=== PATIENT | male | born 1950 | race Caucasian/White ===

== ENCOUNTER 2018-08-24 20:45 | Inpatient (IN) | payer MEDICARE, MEDICAID ==
--- NOTE | 2018-08-24 21:00 | ED Physician Chart ---
ED Chief Complaint/HPI - Patient Information Date Seen:: 08/24/18 Time Seen:: 20:56 Chief Complaint:: agitation History of Present Illness:: sive disorder glaucoma cerebral palsy copd afib oa osteoporois here from [facility] for increased agitation Allergies:: Allergies Allergy/AdvReac Type Severity Reaction Status Date / Time Penicillins Allergy Verified 09/19/17 23:02 ED Review of Systems - Review of Systems General/Constitutional: No fever, No chills Head: No headache ENT: No earache Neck: No neck pain Cardio Vascular: No chest pain Pulmonary: No SOB GI: No nausea, No vomiting G/U: No dysuria Musculoskeletal: No bone or joint pain Family Medical History - Family Member Mother History Unknown: Yes ED Septic Shock - . Is Septic Shock (SBP<90, OR Lactate>4 mmol\L) present?: No ED Reassessment (Disposition) - Diagnosis Diagnosis:: pt here for geropsych clearance - Patient Disposition Discharge/Transfer:: Acute Care w/in this hosp Admitted to:: Med/Surg Condition at Disposition:: Stable
[2018-08-24 21:17] LABS: % BASOPHILS 0.8 % (0.0-2.0); % EOSINOPHILS 0.3 % (0.0-5.0); % MONOCYTES 11.3 % (2.0-10.0); % NEUTROPHILS 61.6 % (40.0-80.0); HEMATOCRIT 36.3 % (41.0-60); HEMOGLOBIN 11.9 gm/dL (12-16); MEAN CELL VOLUME 81.5 fl (80-99); MEAN CORPUSCULAR HEMOGLOBIN 26.8 pg (27.0-31.0); MEAN CORPUSCULAR HGB CONC 32.9 pg (28.0-36.0); MEAN PLATELET VOLUME 7.6 fl; MONOCYTE ABSOLUTE 0.5 Th/cmm (0.3-1.0); NEUTROPHILE ABSOLUTE 2.5 Th/cmm (1.8-8.0); PLATELET COUNT 304 Th/cmm (150-400); RED BLOOD COUNT 4.45 Mil/cmm (3.80-5.80); RED CELL DISTRIBUTION WIDTH 13.8 % (11.5-20.0)
[2018-08-24 21:29] LABS: ALB/GLOB RATIO 1.3 (1.0-1.8); ALKALINE PHOSPHATASE 78 U/L (34-104); ANION GAP 13.1 (7.0-16.0); BILIRUBIN,TOTAL 0.4 mg/dL (0.3-1.0); BUN - UREA NITROGEN 24 mg/dL (7-25); CALCIUM SERUM 9.2 mg/dL (8.6-10.3); CARBON DIOXIDE 23.9 mEq/L (21.0-31.0); CHLORIDE 107 mEq/L (98-107); CREATININE - SERUM 1.1 mg/dL (0.7-1.3); GFR AFRICAN-AMERICAN > 60.0 ml/min (>90); GFR NON AFRICAN-AMERICAN > 60.0 ml/min; GLUCOSE 152 mg/dL (70-105); SGOT 74 U/L (13-39); SGPT/ALT 68 U/L (7-52); SODIUM SERUM 140 mEq/L (136-145); TOTAL PROTEIN,SERUM 7.1 gm/dL (6.0-8.3)
[2018-08-24 23:10] VITALS: BP 142/65
[2018-08-24] MEDS ORDERED: Maalox 30 mL Cup PO PRN (23:18)
[2018-08-24] MEDS ORDERED: Magnesium Hydroxide (MOM) 30 mL UDC PO PRN ×2 (23:18→23:58)
[2018-08-25] MEDS ORDERED: DILTIAZEM HCL 60 MG PO SCH
[2018-08-25] MEDS: Pantoprazole 40 mg EC Tab PO SCH (08:32)
--- NOTE | 2018-08-25 08:38 | Diagnostic Imaging Report ---
CHEST X-RAY: AP view INDICATION: Fall COMPARISON: 09/19/2017 FINDINGS: No evidence of pneumothorax. Mild chronic lung changes are noted. No focal consolidation or effusions. Heart size is borderline prominent.. Osseous structures are intact. Degenerative changes of the spine are noted. IMPRESSION: No focal consolidation or evidence of pneumothorax. Mild chronic lung changes.
[2018-08-25] MEDS ORDERED: MULTIVITAMIN PO SCH (09:00)
[2018-08-25] MEDS ORDERED: HYPROMELLOSE EACH EYE SCH (09:00)
[2018-08-25] MEDS ORDERED: DABIGATRAN ETEXILATE MESYLATE 150 MG PO SCH (09:00)
[2018-08-25] MEDS ORDERED: DEXTRAN EACH EYE SCH (09:00)
[2018-08-25 09:01] LABS: CHOLESTEROL 158 mg/dL (<200); HDL -HIGH DENSITY LIPOPROTEIN 41 mg/dL (23-92); TRIGLYCERIDES 197 mg/dL (<150)
[2018-08-25] MEDS: AZELASTINE HCL HHN SCH ×2 (09:21→17:10)
[2018-08-25] MEDS: Fenofibrate, Micronized 134 mg Cap PO SCH (09:31)
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
[2018-08-25] MEDS: Peg-400/Propylene Ophth Soln 5 mL Bottle EACH EYE SCH ×2 (13:23→17:16)
[2018-08-25] MEDS: Diltiazem 30 mg Tab PO SCH (17:08)
[2018-08-25] MEDS: Polyvinyl Alcohol Ophth Soln 15 mL Bottle EACH EYE SCH (17:09)
[2018-08-25] MEDS: Lactulose 10 Gm/15 mL 30mL UDC PO SCH (21:03)
[2018-08-26] MEDS: Pantoprazole 40 mg EC Tab PO SCH (07:11)
[2018-08-26] MEDS: Fenofibrate, Micronized 134 mg Cap PO SCH (08:55)
[2018-08-26] MEDS: Multivitamin Tab PO SCH (08:56)
[2018-08-26] MEDS: Polyvinyl Alcohol Ophth Soln 15 mL Bottle EACH EYE SCH ×2 (09:03→16:42)
[2018-08-26] MEDS: Diltiazem 30 mg Tab PO SCH ×2 (09:03→16:20)
[2018-08-26] MEDS: Peg-400/Propylene Ophth Soln 5 mL Bottle EACH EYE SCH ×2 (09:03→16:42)
--- NOTE | 2018-08-26 16:15 | Psychiatric Evaluation ---
DATE OF SERVICE: 08/24/2018 CHIEF COMPLAINT: Agitation and yelling. HISTORY OF PRESENT ILLNESS: The patient is a 68-year-old male who has been under my care and he lives in [facility]. The patient has been agitated and has been yelling and screaming at times for no apparent reason. He also has been paranoid and has not been able to follow any of staff instructions. The patient also has been agitated and has been suspicious and paranoid. The patient has history of schizophrenia and has been actively hallucinating lately. PAST PSYCHIATRIC HISTORY: The patient has history of schizophrenia and has been under my care for several years. PAST MEDICAL HISTORY: The patient has a history of cerebral palsy as well as history of CVA and heart failure. SOCIAL HISTORY: The patient is single, never , and has no children. He lives in [facility]. No known alcohol or drug use. ALLERGIES: No known allergies. MENTAL STATUS EXAMINATION: The patient appears his stated age. Anxious. Slow to respond. Thought processes are circumstantial, but no flight of ideas. The patient denies any auditory or visual hallucination, but seems to be suspicious and paranoid. He denies any thoughts of suicide or homicide at this time. The patient is alert and oriented to time, place, person, and situation. Intact immediate, recent and remote memories. Poor insight and poor judgment. Seems to be of low average intelligence to mentally retarded based on verbal ability. ASSESSMENT: PRIMARY DIAGNOSIS: Schizophrenic disorder by history. SECONDARY DIAGNOSES: Dementia, moderate, with psychotic features. MEDICAL DIAGNOSES: 1. Cerebral palsy. 2. Status post cerebrovascular accident. TREATMENT PLAN: We will monitor the patient's behavior and condition closely. We will start individual as well as milieu psychotherapy. We will adjust psychotropic medications and will increase Risperdal to 1 mg twice a day. ESTIMATED LENGTH OF STAY: 5-7 days. THE PATIENT'S STRENGTHS AND WEAKNESSES: The patient's strength is not clear at this time. Weakness is ineffective coping. Also, his poor judgment. AFTER DISCHARGE PLAN: The patient will return to [place] and outpatient treatment and followup will continue as an outpatient. CRITERIA FOR DISCHARGE: The patient will not be psychotic or suicidal or agitated and will stabilize psychotropic medications and will establish outpatient treatment plans. JOB# [id number]
[2018-08-26] MEDS: Dabigatran Mesylate 75 mg Cap PO SCH (16:17)
[2018-08-26] MEDS: Lactulose 10 Gm/15 mL 30mL UDC PO SCH (21:27)
--- NOTE | 2018-08-26 21:52 | Progress Notes ---
DATE: SUBJECTIVE: Chart was reviewed and the patient interviewed. Also discussed the patient's condition with the staff and reviewed records and labs. The patient is still having episodes of irritability and anger. The patient also is still having her mood swings and at times calm and other times easily agitated and irritable. Also, still seems to be in a depressed mood. The patient also is anxious and restless. Needs redirection. Otherwise, the patient continued to comply with taking Risperdal that was increased to 1 mg twice a day and Lexapro in a dose of 10 mg twice a day. Continue same dose and continue to work on behavioral modifications and follow up closely. JOB# [id number]
--- NOTE | 2018-08-26 22:53 | Progress Notes ---
DATE: 08/26/2018 DATE OF SERVICE: 08/26/2018 SUBJECTIVE: The patient seen and examined. The patient is lying in the bed. The patient has no new complaint. OBJECTIVE: VITAL SIGNS: Temperature 97.4, pulse 80, respiratory rate 18, blood pressure 110/68. HEENT: No facial asymmetry. Poor dentition noted. NECK: Supple, no JVD. HEART: Regular. CHEST AND LUNGS: Equal in expansion, no expiratory wheezing. ABDOMEN: Soft. HEART: Irregularly irregular. ABDOMEN: Soft. No palpable mass. EXTREMITIES: No edema. NEUROLOGICAL: Left-sided weakness, spasticity with expressive aphasia and dysarthria noted. CLINICAL IMPRESSION: 1. Psychiatric disorder exacerbation. 2. Atrial fibrillation. 3. Hypertension. 4. Degenerative joint disease. 5. Fall risk. 6. Chronic constipation. 7. Obesity. PLAN: 1. Psychotic evaluation and management deferred to psychiatrist. 2. Rate control. 3. Anticoagulation therapy. 4. Fall precaution. 5. General nursing care. 6. Follow labs. 7. Symptoms management. 8. Medication management. 9. Care plan reviewed and discussed with staff. JOB# [id number]
[2018-08-27] MEDS: Pantoprazole 40 mg EC Tab PO SCH (06:38)
[2018-08-27] MEDS: Multivitamin Tab PO SCH (09:13)
[2018-08-27] MEDS: Diltiazem 30 mg Tab PO SCH ×2 (09:13→17:53)
[2018-08-27] MEDS: Dabigatran Mesylate 75 mg Cap PO SCH ×2 (09:14→17:53)
[2018-08-27] MEDS: Fenofibrate, Micronized 134 mg Cap PO SCH (09:14)
[2018-08-27] MEDS: Peg-400/Propylene Ophth Soln 5 mL Bottle EACH EYE SCH ×2 (09:36→17:58)
[2018-08-27] MEDS: Polyvinyl Alcohol Ophth Soln 15 mL Bottle EACH EYE SCH ×2 (09:36→17:58)
[2018-08-27] MEDS: Lactulose 10 Gm/15 mL 30mL UDC PO SCH (21:31)
--- NOTE | 2018-08-28 01:27 | Progress Notes ---
DATE: 08/27/2018 SUBJECTIVE: Chart was reviewed and the patient interviewed. Also discussed the patient's condition with the staff and reviewed records and labs. The patient is still guarded and still has labile affect. The patient also is still suspicious and paranoid, but his aggressive behaviors much decreased. The patient also still has episodes of mood swings. On the other hand, the patient is compliant with taking his medications with no side effects of Risperdal or Lexapro. ASSESSMENT: The patient is still psychotic and agitated. TREATMENT PLAN: Continue to monitor his behavior and his condition closely. Also, we will continue adjusting psychotropic medications and follow up closely. JOB# [id number]
[2018-08-28] MEDS: Pantoprazole 40 mg EC Tab PO SCH (06:37)
[2018-08-28] MEDS: Diltiazem 30 mg Tab PO SCH ×2 (08:24→17:00)
[2018-08-28] MEDS: Fenofibrate, Micronized 134 mg Cap PO SCH (08:24)
[2018-08-28] MEDS: Dabigatran Mesylate 75 mg Cap PO SCH ×2 (08:24→17:00)
[2018-08-28] MEDS: Multivitamin Tab PO SCH (08:25)
[2018-08-28] MEDS: Polyvinyl Alcohol Ophth Soln 15 mL Bottle EACH EYE SCH ×2 (08:27→17:00)
[2018-08-28] MEDS: Peg-400/Propylene Ophth Soln 5 mL Bottle EACH EYE SCH ×2 (09:00→17:00)
--- NOTE | 2018-08-28 20:21 | Progress Notes ---
DATE: 08/28/2018 DATE OF SERVICE: 08/28/2018 SUBJECTIVE: The patient seen and examined. The patient is lying in the bed. No new event. PHYSICAL EXAMINATION: VITAL SIGNS: Temperature 97.9, pulse 65, respiratory rate 18, blood pressure 130/70. HEENT: No facial asymmetry. Poor dentition noted. NECK: Supple, no JVD. HEART: Irregularly irregular. CHEST: Lung equal in expansion, no expiratory wheezing. ABDOMEN: Soft. No guarding, no rigidity. Bowel sounds present. No palpable mass. EXTREMITIES: No edema. NEUROLOGICAL: Left-sided weakness noted, more on the left lower extremity than upper extremity. CLINICAL IMPRESSION: 1. Psychiatric disorder exacerbation. 2. Chronic atrial fibrillation. 3. Chronic long-term anticoagulation therapy. 4. History of cerebrovascular accident. 5. Hyperlipidemia. 6. Hypertension. 7. Degenerative joint disease. 8. Cerebral palsy. 9. Mental retardation. 10. Dysphagia. 11. Allergic rhinosinusitis. PLAN: 1. Psychotic evaluation and management deferred to psychiatrist. 2. Rate control. 3. Anticoagulation therapy. 4. Fall precaution. 5. General nursing care. 6. Chronic disease management. 7. Symptoms management. 8. Medication management. A. Care plan reviewed and discussed with staff. JOB# [id number]
[2018-08-28] MEDS: Lactulose 10 Gm/15 mL 30mL UDC PO SCH (20:58)
--- NOTE | 2018-08-28 22:33 | Progress Notes ---
DATE: 08/28/2018 SUBJECTIVE: Chart reviewed and the patient interviewed. Also discussed the patient's condition with the staff and reviewed records and labs. The patient seems to be slightly calmer than before. Also is easier to redirect him. He is still suspicious and paranoid and seems to be preoccupied. Otherwise, he is compliant with taking his medications and he denies any side effects of Risperdal. ASSESSMENT: The patient is still psychotic, but showing some improvement. TREATMENT PLAN: We will continue to monitor his behavior and his condition closely. Also continue adjusting psychotropic medications and work on behavioral modification. JOB# [id number]
[2018-08-29] MEDS: Pantoprazole 40 mg EC Tab PO SCH (06:39)
[2018-08-29] MEDS: Dabigatran Mesylate 75 mg Cap PO SCH ×2 (08:50→17:00)
[2018-08-29] MEDS: Diltiazem 30 mg Tab PO SCH ×2 (08:50→17:00)
[2018-08-29] MEDS: Fenofibrate, Micronized 134 mg Cap PO SCH (08:52)
[2018-08-29] MEDS: Multivitamin Tab PO SCH (08:53)
[2018-08-29] MEDS: Polyvinyl Alcohol Ophth Soln 15 mL Bottle EACH EYE SCH ×2 (08:57→17:00)
[2018-08-29] MEDS: Peg-400/Propylene Ophth Soln 5 mL Bottle EACH EYE SCH ×2 (08:57→17:00)
--- NOTE | 2018-08-29 20:51 | Progress Notes ---
DATE: 08/29/2018 SUBJECTIVE: Chart reviewed and the patient interviewed. Also discussed the patient's condition with the staff and reviewed records and labs. The patient is still hyperverbal and still gets agitated and irritable at times for no apparent reason. The patient also is still suspicious and is still paranoid. Also has episodes of agitation. He also still needs redirections. On the other hand, the patient continued to comply with taking his medications with no side effects of medications. ASSESSMENT: The patient is still anxious and irritable. TREATMENT PLAN: Continue to monitor his behavior and his condition closely. Also, continue adjusting psychotropic medications and work on behavioral modification. JOB# [id number]
[2018-08-30] MEDS: Pantoprazole 40 mg EC Tab PO SCH (06:48)
[2018-08-30] MEDS: Diltiazem 30 mg Tab PO SCH ×2 (08:58→16:47)
[2018-08-30] MEDS: Fenofibrate, Micronized 134 mg Cap PO SCH (08:59)
[2018-08-30] MEDS: Multivitamin Tab PO SCH (09:01)
[2018-08-30] MEDS: Dabigatran Mesylate 75 mg Cap PO SCH ×2 (09:02→16:50)
[2018-08-30] MEDS: Polyvinyl Alcohol Ophth Soln 15 mL Bottle EACH EYE SCH (09:04)
[2018-08-30] MEDS: Peg-400/Propylene Ophth Soln 5 mL Bottle EACH EYE SCH (09:04)
--- NOTE | 2018-08-30 13:45 | Progress Notes ---
DATE: 08/30/2018 SUBJECTIVE: The patient in the hospital, coming in from a detention, agitated, yelling, screaming, not really following any directions. The patient believing he is here for "my leg." He seems to have a possible history of developmental disability. It is unclear. Diagnoses noting schizophrenia, dementia. The patient remains highly impulsive, unpredictable, mostly keeping to himself. Ongoing concerns about poor impulse control, impulsivities, sometimes hyperverbal, getting agitated, suspicious of others. PLAN: We will continue to monitor. Medications are noted. We will adjust medications as tolerated. The patient to follow up with Dr. Baron in the morning. JOB# [id number]
--- NOTE | 2018-08-31 00:56 | Progress Notes ---
DATE: IDENTIFYING DATA: A 68-year-old male. SUBJECTIVE: The patient was seen and examined. The patient is lying in the bed. No new complaint. OBJECTIVE: VITAL SIGNS: Temperature 97.3, pulse 73, respiratory rate 18, blood pressure 142/73. HEENT: No facial asymmetry. NECK: Supple, no JVD. HEART: Irregular. LUNGS: Clear to auscultation. ABDOMEN: Soft. No guarding or rigidity. Bowel sounds are present. No palpable mass. EXTREMITIES: No edema. NEUROLOGICAL: Unremarkable left-sided weakness. CLINICAL IMPRESSION: 1. Chronic AFib. 2. Long-term anticoagulation therapy. 3. Hypertension. 4. Allergic rhinosinusitis. 5. Cerebral palsy. 6. Izza-qw-dfszshco mental retardation. 7. High risk for fall. 8. Degenerative joint disease. 9. Hyperlipidemia. 10. Obesity. 11. Glaucoma. 12. Psychotic disorder exacerbation. PLAN: The patient is to continue medications for his underlying problem which included chronic AFib, hypertension, hyperlipidemia, DJD, gout and follow the patient's vital signs. Psychiatric evaluation deferred to psychiatrist. Symptoms management, medication management provided. We will continue to follow this patient during the stay in the hospital. JOB# [id number]
[2018-08-31] MEDS: Lactulose 10 Gm/15 mL 30mL UDC PO SCH ×2 (02:41→20:51)
--- NOTE | 2018-08-31 08:12 | Progress Notes ---
DATE: 08/31/2018 SUBJECTIVE: Chart was reviewed and the patient interviewed. Also discussed the patient's condition with the staff and reviewed records and labs. The patient is still having episodes of irritability and agitation. The patient also is still rambling. Also, complaining of blurry vision this morning. Otherwise, the patient is compliant with taking his medications with no side effects of medications. ASSESSMENT: The patient is still agitated and still needs redirections. TREATMENT PLAN: Continue to monitor his behavior and his condition closely. Also, continue to work on his poor impulse control and his high anxiety level and we will continue to follow up closely. [facility]# [id number]
[2018-08-31] MEDS: Fenofibrate, Micronized 134 mg Cap PO SCH (08:48)
[2018-08-31] MEDS: Diltiazem 30 mg Tab PO SCH ×2 (08:49→17:38)
[2018-08-31] MEDS: Dabigatran Mesylate 75 mg Cap PO SCH ×2 (08:49→17:38)
[2018-08-31] MEDS: Multivitamin Tab PO SCH (08:50)
[2018-08-31] MEDS: Peg-400/Propylene Ophth Soln 5 mL Bottle EACH EYE SCH ×3 (08:56→17:42)
[2018-08-31] MEDS: Pantoprazole 40 mg EC Tab PO SCH (08:56)
[2018-08-31] MEDS: Polyvinyl Alcohol Ophth Soln 15 mL Bottle EACH EYE SCH ×3 (08:57→17:42)
--- NOTE | 2018-08-31 23:44 | Progress Notes ---
DATE: 08/31/2018 IDENTIFICATION: This 68-year-old male. SUBJECTIVE: The patient seen and examined. The patient is lying in the bed. The patient denies any chest pain, shortness of breath, palpitation, dizziness, nausea, vomiting. PHYSICAL EXAMINATION: VITAL SIGNS: Temperature 98.2, pulse 78, respiratory rate 18, blood pressure 150/60. HEENT: No facial asymmetry. NECK: Supple, no JVD. HEART: Regular. CHEST AND LUNGS: Equal in expansion, no expiratory wheezing. ABDOMEN: Soft. No guarding or rigidity. Bowel sounds present. No palpable mass. EXTREMITIES: No edema. NEUROLOGIC: Remarkable for left-sided lower extremity weakness noted. CLINICAL IMPRESSION: 1. Hypertension. 2. Chronic atrial fibrillation. 3. Obesity. 4. Cerebral palsy. 5. History of cerebrovascular accident. 6. Mild intellectual disability. 7. Psychotic disorder. 8. Degenerative joint disease. 9. Obesity. PLAN: 1. Diet and exercise discussed. 2. Compressive medicine discussed. 3. Medication list reviewed. 4. Fall precautions. 5. General nursing care. 6. Care plan reviewed and discussed with staff. JOB# [id number]
[2018-09-01] MEDS: Pantoprazole 40 mg EC Tab PO SCH (06:53)
[2018-09-01] MEDS: Fenofibrate, Micronized 134 mg Cap PO SCH (08:58)
[2018-09-01] MEDS: Multivitamin Tab PO SCH (08:59)
[2018-09-01] MEDS: Diltiazem 30 mg Tab PO SCH ×2 (09:00→17:00)
[2018-09-01] MEDS: Peg-400/Propylene Ophth Soln 5 mL Bottle EACH EYE SCH ×2 (09:01→17:00)
[2018-09-01] MEDS: Polyvinyl Alcohol Ophth Soln 15 mL Bottle EACH EYE SCH ×2 (09:01→17:00)
[2018-09-01] MEDS: Dabigatran Mesylate 75 mg Cap PO SCH ×2 (09:01→17:00)
--- NOTE | 2018-09-01 18:59 | Progress Notes ---
DATE: 09/01/2018 SUBJECTIVE: Chart was reviewed and the patient interviewed. Also discussed the patient's condition with the staff and reviewed records and labs. The patient is still anxious and restless and still has periods of agitation and irritability. The patient also still needs lots of redirections. The patient also is still suspicious and is paranoid and still has episodes of irritability and anger. On the other hand, the patient is compliant with taking his medications with no side effects of medications. ASSESSMENT: The patient is still agitated, but easier to redirect him. TREATMENT PLAN: Continue to monitor behavior and condition closely. Also, continue adjusting psychotropic medications and followup. JOB# [id number]
[2018-09-01] MEDS: Lactulose 10 Gm/15 mL 30mL UDC PO SCH (20:51)
[2018-09-02] MEDS: Pantoprazole 40 mg EC Tab PO SCH (06:30)
[2018-09-02] MEDS: Multivitamin Tab PO SCH (09:25)
[2018-09-02] MEDS: Dabigatran Mesylate 75 mg Cap PO SCH ×2 (09:26→15:59)
[2018-09-02] MEDS: Fenofibrate, Micronized 134 mg Cap PO SCH (09:27)
[2018-09-02] MEDS: Peg-400/Propylene Ophth Soln 5 mL Bottle EACH EYE SCH ×2 (09:29→15:59)
[2018-09-02] MEDS: Polyvinyl Alcohol Ophth Soln 15 mL Bottle EACH EYE SCH ×2 (09:29→15:59)
[2018-09-02] MEDS: Diltiazem 30 mg Tab PO SCH ×2 (09:31→15:59)
[2018-09-02] MEDS: Lactulose 10 Gm/15 mL 30mL UDC PO SCH (20:46)
--- NOTE | 2018-09-03 03:55 | Progress Notes ---
DATE: 09/02/2018 DATE: 01/03/2019 SUBJECTIVE: Chart was reviewed and the patient interviewed. Also discussed the patient's condition with the staff and reviewed records and labs. The patient is still in irritable mood and easily agitated and anxious. The patient also is still having mood swings. The patient also is still restless and still needs redirections. The patient also is still interacting minimally with others and when he does, he argumentative. Otherwise, the patient is compliant with taking his medications with no side effects of medications. ASSESSMENT: The patient is still agitated and still needs close monitoring. TREATMENT PLAN: Continue to monitor his behavior closely and continue adjusting psychotropic medications and follow up closely. Also, work on behavioral modification. [facility]# [id number]
[2018-09-03] MEDS: Pantoprazole 40 mg EC Tab PO SCH (06:54)
[2018-09-03] MEDS: Dabigatran Mesylate 75 mg Cap PO SCH ×2 (08:35→16:56)
[2018-09-03] MEDS: Multivitamin Tab PO SCH (08:36)
[2018-09-03] MEDS: Diltiazem 30 mg Tab PO SCH ×2 (08:36→16:55)
[2018-09-03] MEDS: Fenofibrate, Micronized 134 mg Cap PO SCH (08:36)
[2018-09-03] MEDS: Polyvinyl Alcohol Ophth Soln 15 mL Bottle EACH EYE SCH ×2 (09:18→16:57)
[2018-09-03] MEDS: Peg-400/Propylene Ophth Soln 5 mL Bottle EACH EYE SCH (09:18)
[2018-09-03] MEDS: Lactulose 10 Gm/15 mL 30mL UDC PO SCH (21:06)
--- NOTE | 2018-09-03 21:56 | Progress Notes ---
DATE: 09/03/2018 SUBJECTIVE: The patient is agitated, yelling, screaming, paranoid, could not be really cared for at a lower level of care. Dr. Baron seeing the patient over the past few days. The patient is irritable, anxious, refusing to talk to me today, and minimal interactions with others were noted. Nursing staff noting he remains impulsive, still confused at times, history of cerebral palsy, developmental disability. Medications were noted. Sleeping fairly well. Needing some prompting, redirection. PLAN: We will continue to monitor. Continues to need a higher level of nursing care. JOB# [id number]
[2018-09-04] MEDS: Pantoprazole 40 mg EC Tab PO SCH (06:37)
[2018-09-04] MEDS: Peg-400/Propylene Ophth Soln 5 mL Bottle EACH EYE SCH ×3 (08:41→17:39)
[2018-09-04] MEDS: Diltiazem 30 mg Tab PO SCH ×2 (08:43→16:32)
[2018-09-04] MEDS: Multivitamin Tab PO SCH (08:43)
[2018-09-04] MEDS: Fenofibrate, Micronized 134 mg Cap PO SCH (08:45)
[2018-09-04] MEDS: Dabigatran Mesylate 75 mg Cap PO SCH ×2 (08:46→16:32)
[2018-09-04] MEDS: Polyvinyl Alcohol Ophth Soln 15 mL Bottle EACH EYE SCH ×2 (08:47→17:00)
--- NOTE | 2018-09-04 19:08 | Progress Notes ---
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 Baron is at home Wednesday." The patient seems to be impulsive, somewhat unpredictable, history of developmental disability. The patient needing some prompt to take medications. He has been generally calmer, no outburst. Medications were noted, currently on Risperdal, seems to be tolerating well. PLAN: We will continue to monitor, ongoing safety concerns, impulsivity, but some improvement noted. JOB# [id number]
[2018-09-04] MEDS: Lactulose 10 Gm/15 mL 30mL UDC PO SCH (20:59)
--- NOTE | 2018-09-04 23:59 | Progress Notes ---
DATE: 09/04/2018 DATE OF SERVICE: 09/04/2018 IDENTIFICATION: This is a 68-year-old male. SUBJECTIVE: The patient seen and examined. The patient is lying in the bed. No new event. The patient denies any chest pain, shortness of breath, palpitation, dizziness, nausea, vomiting. PHYSICAL EXAMINATION: VITAL SIGNS: Temperature 98.2, pulse 60, respiratory rate 19, blood pressure 120/60. HEENT: No facial asymmetry. Poor dentition noted. NECK: Supple, no JVD. HEART: Both heart sounds are irregularly irregular. CHEST: Lungs equal in expansion. No expiratory wheezing. ABDOMEN: Soft. No guarding, no rigidity. Bowel sounds present. No palpable mass. EXTREMITIES: No edema. Remarkable for dysarthria along with spasticity involving left lower extremity noted. CLINICAL IMPRESSION: 1. Chronic atrial fibrillation. 2. Cerebral palsy. 3. Mental retardation. 4. Psychotic disorder. 5. Hyperlipidemia. 6. Glaucoma. 7. Allergic rhinosinusitis. 8. History of cerebrovascular accident. 9. Gastroesophageal reflux disease. PLAN: 1. Rate control. 2. Anticoagulation therapy. 3. Psych followup. 4. Glaucoma drops. 5. Avoid constipation. 6. Fall precaution. 7. General nursing care. 8. We will continue to follow this patient during the stay in the hospital. JOB# [id number]
[2018-09-05] MEDS: Pantoprazole 40 mg EC Tab PO SCH (06:33)
[2018-09-05] MEDS: Fenofibrate, Micronized 134 mg Cap PO SCH (08:32)
[2018-09-05] MEDS: Dabigatran Mesylate 75 mg Cap PO SCH ×2 (08:33→16:51)
[2018-09-05] MEDS: Diltiazem 30 mg Tab PO SCH ×2 (08:50→16:51)
[2018-09-05] MEDS: Multivitamin Tab PO SCH (08:51)
[2018-09-05] MEDS: Peg-400/Propylene Ophth Soln 5 mL Bottle EACH EYE SCH ×2 (08:52→16:53)
[2018-09-05] MEDS: Polyvinyl Alcohol Ophth Soln 15 mL Bottle EACH EYE SCH ×2 (08:52→16:53)
--- NOTE | 2018-09-05 22:36 | Discharge Summary ---
DATE OF DISCHARGE: 09/05/2018 PATIENT'S AGE: 68-year-old. SEX: Male. PHYSICIAN: Dr. Baron. FINAL DIAGNOSES: PRIMARY DIAGNOSIS: Chronic paranoid schizophrenia with acute exacerbation. SECONDARY DIAGNOSIS: Dementia, mild. MEDICAL DIAGNOSIS: Cerebral palsy. Status post cerebrovascular accident. REASON FOR HOSPITALIZATION: The patient was admitted to the hospital because of increased irritability and agitation in [facility]. The patient also was not able to follow directions and was severely paranoid. HOSPITAL COURSE: The patient continued to be paranoid and agitated. The patient also was restless and has episodes of anger and paranoia. The patient continued to take Lexapro in a dose of 20 mg every day and Risperdal was added and the dose adjusted to 1 mg in the morning and 1 mg at bedtime. Gradually, the patient's affect was brighter. The patient was less irritable and less agitated. Also, was more compliant with taking his medications and easier to redirect and the patient was discharged back to [place]. PHYSICAL EXAMINATION: As mentioned under final diagnosis, the patient had no major medical problems while in the hospital. EXPECTED OUTCOME AFTER DISCHARGE: Fair if the patient continues to take psychotropic medications and follow up with discharge plans. JOB# [id number]
== END 2018-09-05 17:30 | DRG 885 ==
LOC: ER 20:45 → GERO 22:17
PROVIDERS: ADMIT Psychiatry & Neurology Psychiatry; ATTEND Psychiatry & Neurology Psychiatry
DX: F20.0 Paranoid schizophrenia (principal); F71 Moderate intellectual disabilities; F03.91 Unspecified dementia, unspecified severity, with behavioral disturbance; G80.9 Cerebral palsy, unspecified; H40.9 Unspecified glaucoma; I10 Essential (primary) hypertension; R25.2 Cramp and spasm; J30.9 Allergic rhinitis, unspecified; J44.9 Chronic obstructive pulmonary disease, unspecified; M19.90 Unspecified osteoarthritis, unspecified site; M81.0 Age-related osteoporosis without current pathological fracture; K21.9 Gastro-esophageal reflux disease without esophagitis; R13.10 Dysphagia, unspecified; K59.09 Other constipation; E66.9 Obesity, unspecified; I48.2 Chronic atrial fibrillation; M10.9 Gout, unspecified; Z86.73 Personal history of transient ischemic attack (TIA), and cerebral infarction without residual deficits; Z91.81 History of falling; Z68.37 Body mass index [BMI] 37.0-37.9, adult; Z88.0 Allergy status to penicillin
CPT/HCPCS: 36415-UA; 71045-TC; 80053-TC; 80061-TC; 83036-90; 83605; 85025-TC; Z7610